=== PATIENT | male | born 1990 | race Caucasian/White ===

== ENCOUNTER 2022-07-17 17:18 | Emergency (ER) | payer BC ==
[~2022-07-17] VITALS: Ht 182.9 cm; Wt 77.3 kg
[~2022-07-17 17:18] MED LIST: NO HOME MEDICATIONS
[2022-07-17 17:30] VITALS: BP 154/100; TEMP 97.7
[2022-07-17] MEDS ORDERED: PERCOCET 325 MG1 TA2 PO (19:48)
[2022-07-17 20:54] VITALS: PULSE 93
== END 2022-07-17 20:57 | disposition home or self-care (01) ==
LOC: COL.ER 17:18
DX: S06.0X9A Concussion with loss of consciousness of unspecified duration, initial encounter (principal); S02.2XXA Fracture of nasal bones, initial encounter for closed fracture; S01.511A Laceration without foreign body of lip, initial encounter; S01.81XA Laceration without foreign body of other part of head, initial encounter; Z23 Encounter for immunization; W07.XXXA Fall from chair, initial encounter; Y92.321 Football field as the place of occurrence of the external cause; Y93.61 Activity, american tackle football